=== PATIENT | female | born 1975 | race Caucasian/White ===

== ENCOUNTER 2016-10-18 10:12 | Emergency (ER) | payer OTHER ==
[~2016-10-18] VITALS: Ht 177.8 cm; Wt 106.3 kg
[~2016-10-18 10:12] MED LIST: ALLERGY SHOTS; AMPH30TA2 PO
[2016-10-18 10:16] VITALS: TEMP 36.9; Ht 177.8 cm; Wt 106.3 kg
[2016-10-18] MEDS ORDERED: PENI-82 PO (10:44)
[2016-10-18] MEDS ORDERED: HYDR-5688 PO (10:44)
--- NOTE | 2016-10-18 10:45 | EMERGENCY ROOM VISIT NOTE ---
ED Visit Note First contact with patient: 10:20 CHIEF COMPLAINT: Toothache HISTORY OF PRESENT ILLNESS: This 41-year-old female patient presented to the emergency department ambulatory with a progressive toothache for past 1 week. The patient believes it is coming from left lower molar the patient states that she felt that she got a popcorn kernel stuck in her gumline. She states she has been digging at it was not able to move anything. She states that now she has pain, swelling and tenderness to the gum. The pain is now steady and severe and radiates to the face. The patient does not have plans to a dentist appointment set up the plans to contact them on Wednesday. They rate their pain a 7/10 and the ibuprofen and Tylenol they have been taking has not relieved the pain. Denies facial swelling or fever. The patient denies any discharge from the mouth. REVIEW OF SYSTEMS: A 6 system review of systems was completed with positives and pertinent negatives listed in the HPI. ALLERGIES: No known drug allergies MEDICATIONS: Adderall PMH: ADHD SOCIAL HISTORY: The patient is employed. She does not smoke PHYSICAL EXAM: Vitals are noted on the nurse's note and reviewed by myself. Vital signs stable. Temperature 36.9C orally. GENERAL: This is a 41-year-old female, in no acute distress, nondiaphoretic, well-developed well-nourished. Mouth: The right lower tooth normal in appearance but the gum is swollen and tender around it, without any discharge or signs of an abscess. The remainder of the pharynx and tonsils are without erythema, edema, or exudate. The airway is patent. There is very mild left jaw swelling, There is no cervical or submandibular lymphadenopathy. The patient appears uncomfortable and in pain. The patient has overall good dental hygiene. ED COURSE: The patient was seen and examined. Previous visits were reviewed. The patient does not have a fever. She does not have any significant facial swelling. She is nontoxic in appearance. She will be placed on Pen-Vee K and given a small prescription for Kellogg. She should follow-up with a dentist for definitive management. She should return with worsening symptoms. Problem List Medical Problems: (1) Unspecified Asthma, Uncomplicated Status: Chronic Surgical Problems: (1) [place] teeth extracted Status: Resolved Current/Historical Medications Scheduled Amphetamine-Dextroamphetamine 30MG (Adderall 30MG), 1 TAB PO DAILY Penicillin V Potassium (Veetids), 500 MG PO QID Scheduled PRN Hydrocodone/Acetaminophen 5MG/325MG (Kellogg 5MG/325MG), 1 TABLET PO Q6 PRN for Pain Miscellaneous Medications [Allergy Shots] Allergies Coded Allergies: Animal Dander (Verified Allergy, Severe, ALSO ALLERGY TO PLANTS, 12/08/07) Dust (Verified Allergy, Severe, 12/08/07) Vital Signs Date Time Temp Pulse Resp B/P Pulse Ox O2 Delivery O2 Flow Rate FiO2 10/18/16 10:56 84 16 138/85 98 10/18/16 10:16 36.9 85 18 154/96 97 Room Air Departure Information Impression Primary Impression: Tooth pain with chewing Dispostion Home / Self-Care Condition GOOD Prescriptions Hydrocodone/Acetaminophen 5MG/325MG (Kellogg 5MG/325MG) Tab 1 TABLET PO Q6 Y for Pain, #12 TAB For Initial Treatment Prov: Lisa Katz PA-C 10/18/16 Penicillin V Potassium (Veetids) 500 Mg Tab 500 MG PO QID, #40 TAB Prov: Lisa Katz PA-C 10/18/16 Referrals Pro,John De Los Santos M.D. (PCP) Patient Instructions My [facility] Additional Instructions Pen-Vee K 4 times daily for 10 days.Kellogg one tablet every 6 hours if needed for worse pain. Do not drink or drive while taking Kellogg and do not take with Tylenol. Followup with a dentist for definitive management of your tooth. Return with high fevers, worsening pain or swelling.
[2016-10-18 10:56] VITALS: BP 138/85; PULSE 84; O2SAT 98
[2017-03-12] MEDS ORDERED: VNTHFA/IN INH (10:00)
== END 2016-10-18 10:58 | disposition home or self-care (01) ==
LOC: C.EDB 10:13
DX: K08.89 Other specified disorders of teeth and supporting structures (principal); F90.9 Attention-deficit hyperactivity disorder, unspecified type; J45.909 Unspecified asthma, uncomplicated; Z79.899 Other long term (current) drug therapy

== ENCOUNTER 2016-12-18 11:04 | Emergency (ER) | payer OTHER ==
[~2016-12-18] VITALS: Ht 177.8 cm; Wt 98.5 kg
[~2016-12-18 11:04] MED LIST changes: +HYDR-5688 PO; +PENI-82 PO
[2016-12-18 11:06] VITALS: Ht 177.8 cm; Wt 98.5 kg
[2016-12-18] MEDS ORDERED: MULT-506 PO (11:30)
--- NOTE | 2016-12-18 11:46 | DIAGNOSTIC IMAGING REPORT ---
RIGHT FOOT MIN 3 VIEWS ROUTINE CLINICAL HISTORY: Right foot pain following injury. COMPARISON: None FINDINGS: Tarsometatarsal joints are intact. There is extensive plantar and moderate posterior calcaneal spurring. No acute fracture is identified. IMPRESSION: No acute fracture or dislocation within the right foot. Electronically signed by: Noé Riggs M.D. 12/18/2016 11:45 AM Dictated Date/Time: 12/18/2016 11:43 AM
--- NOTE | 2016-12-18 12:30 | EMERGENCY ROOM VISIT NOTE ---
History First contact with patient: 11:26 Chief Complaint: FOOT PAIN Stated Complaint: RIGHT FOOT PAIN History of Present Illness The patient is a 41 year old female who presents to the Emergency Room with complaints of persistent right foot pain after dropping a dresser on her foot 3 days ago. The patient reports persistent swelling and pain with any attempted extension of her great toe. She denies any pain extending into the bottom of the foot, heel or ankle. Weightbearing worsens her pain to an 8 out of 10. 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 She denies any paresthesias or numbness of the foot or toes. Review of Systems 10 system review was performed and was negative except for pertinent positives and negatives as indicated in history of present illness Past Medical/Surgical History Medical Problems: (1) Unspecified Asthma, Uncomplicated Surgical Problems: (1) [place] teeth extracted Family History Unremarkable Social History Smoking Status: Former Smoker Alcohol Use: occasionally Marital Status: Housing Status: lives with family Occupation Status: employed Current/Historical Medications Scheduled Amphetamine-Dextroamphetamine 30MG (Adderall 30MG), 1 TAB PO DAILY Multivitamin (Multivitamin), 1 TAB PO DAILY Physical Exam Vital Signs Date Time Temp Pulse Resp B/P (MAP) Pulse Ox O2 Delivery O2 Flow Rate FiO2 12/18/16 11:06 36.4 82 16 128/86 98 Room Air Physical Exam CONSTITUTIONAL: Healthy and well nourished. Alert and oriented X 3 with positive affect. HEENT: Normocephalic, atraumatic. Pupils equal, round and reactive. MUSCULOSKELETAL: Examination of the right foot shows mild dorsolateral edema. No abrasions, lacerations or ecchymosis. She has tenderness to palpation across the entire dorsal foot, but no tenderness to palpation through the plantar foot or metatarsal region. The patient is able to extend the toes on exam. No discomfort with subtalar motion. Pedal pulses are intact. Capillary refill is less than 2 seconds. INTEGUMENTARY: No rash or other significant dermatologic conditions noted. NEUROLOGIC: Right foot and toes are sensory intact. Medical Decision & Procedures ER Provider Diagnostic Interpretation: My interpretation of right foot x-rays does not show any fractures or dislocations. Radiologist report is as follows: RIGHT FOOT MIN 3 VIEWS ROUTINE CLINICAL HISTORY: Right foot pain following injury. COMPARISON: None FINDINGS: Tarsometatarsal joints are intact. There is extensive plantar and moderate posterior calcaneal spurring. No acute fracture is identified. IMPRESSION: No acute fracture or dislocation within the right foot. ED Course Patient history and physical exam were performed. Nurse's notes were reviewed. The patient refused any analgesics while in the emergency department. X-rays of the right foot were normal. I did suggest dispensing crutches, however the patient refused. I explained to the patient that her symptoms may be exacerbated by persistent weightbearing, and encouraged limiting weight on the foot as much as possible. She may alternate ibuprofen and Tylenol as needed for pain. She was encouraged to follow-up with [facility] if symptoms persist. The patient voiced understanding of all discharge instructions, and rated her pain a 4 out of 10 at the conclusion of my exam. Medical Decision Medication Reconcilliation Current Medication List: was personally reviewed by me Blood Pressure Screening Patient's blood pressure: Normal blood pressure Impression Primary Impression: Contusion of right foot Departure Information Referrals Pro,John De Los Santos M.D. (PCP) Patient Instructions My [facility] Problem Qualifiers Primary Impression: Contusion of right foot Encounter type: initial encounter Qualified Codes: S90.31XA - Contusion of right foot, initial encounter
[2016-12-18 12:36] VITALS: BP 126/88; PULSE 80; TEMP 36.4; O2SAT 98
== END 2016-12-18 12:37 | disposition home or self-care (01) ==
LOC: C.EDB 11:06 → C.EDD 12:37
DX: S90.31XA Contusion of right foot, initial encounter (principal); W20.8XXA Other cause of strike by thrown, projected or falling object, initial encounter; J45.909 Unspecified asthma, uncomplicated; Z87.891 Personal history of nicotine dependence

== ENCOUNTER → 2017-03-08 | Outpatient (CLI) | payer OTHER ==
[~2017-03-08] MED LIST changes: -ALLERGY SHOTS; -HYDR-5688 PO; +MULT-506 PO; -PENI-82 PO
[2017-03-08 10:42] LABS: HEMATOCRIT 39.2 % (37-47); MEAN CELL VOLUME 85.6 fL (80-100); MEAN CORPUSCULAR HEMOGLOBIN 27.5 pg (25-34); MEAN CORPUSCULAR HGB CONC 32.1 g/dl (32-36); MEAN PLATELET VOLUME 11.8 fL (7.4-10.4); PLATELET COUNT 260 K/uL (130-400); RED BLOOD COUNT 4.58 M/uL (4.2-5.4); WHITE BLOOD COUNT 6.49 K/uL (4.8-10.8)
[2017-03-08 11:36] LABS: ESTIMATED AVERAGE GLUCOSE 117 mg/dl; HA1C FLAG Normal (Normal)
[2017-03-08 11:45] LABS: BLOOD UREA NITROGEN 12 mg/dl (7-18); BUN/CREATININE RATIO 14.4 (10-20); CALCIUM 8.9 mg/dl (8.5-10.1); CARBON DIOXIDE 25 mmol/L (21-32); CHLORIDE 105 mmol/L (98-107); CREATININE 0.83 mg/dl (0.60-1.20); GLUCOSE 107 mg/dl (70-99); POTASSIUM 4.1 mmol/L (3.5-5.1); SODIUM 139 mmol/L (136-145)
[2017-03-08 12:03] LABS: CHOLESTEROL 115 mg/dl (0-200); CHOLESTEROL/HDL RATIO 2.2; HDL CHOLESTEROL 52 mg/dl; LDL CHOLESTEROL CALCULATED 54 mg/dl; THYROID STIMULATING HORMONE 0.998 uIu/ml (0.300-4.500); TRIGLYCERIDES 43 mg/dl (0-150); VERY LOW DENSITY LIPOPROT CALC 9 mg/dl
[2017-03-09 11:58] LABS: BEEF CLASS 0/1; BEEF IGE 0.14 KU/L; CHOCOLATE CLASS 0; CHOCOLATE IGE <0.10 KU/L; CLAM CLASS 0/1; CLAM IGE 0.25 KU/L; CORN CLASS 0/1; CORN IGE 0.21 KU/L; CRAB CLASS 0/1; EGG MIX CLASS 0/1; EGG MIX IGE 0.23 KU/L; LOBSTER CLASS 0/1; LOBSTER IGE 0.12 KU/L; PEANUT IGE 0.24 KU/L; PORK CLASS 0; PORK IGE <0.10 KU/L; SHRIMP CLASS 3; SOY CLASS 0/1; SOY IGE 0.33 KU/L; WHEAT CLASS 0/1
== END | disposition home or self-care (01) ==
LOC: C.LAB1850 09:15
PROVIDERS: ATTEND Internal Medicine
DX: O24.419 Gestational diabetes mellitus in pregnancy, unspecified control (principal); Z3A.00 Weeks of gestation of pregnancy not specified; F90.9 Attention-deficit hyperactivity disorder, unspecified type; Z13.220 Encounter for screening for lipoid disorders; E07.9 Disorder of thyroid, unspecified; R22.0 Localized swelling, mass and lump, head; J45.909 Unspecified asthma, uncomplicated

== ENCOUNTER → 2017-03-22 | Day surgery (SDC) | payer OTHER ==
[2017-03-12 09:59] VITALS: BMI 31.0
[~2017-03-22] VITALS: Ht 177.8 cm; Wt 100.0 kg
[~2017-03-22] MED LIST changes: +ATROPINE SULFATE 0.1 MG/ML 5ML SYR IV PRN; +EpHEDrine SULFATE INJ 50 MG/ML AMP IV PRN; -MULT-506 PO; +PROPOFOL IV EMULSION 10 MG/ML 20 ML VIAL IV ONE; +VNTHFA/IN INH
[2017-03-22 09:01] VITALS: Ht 177.8 cm; Wt 100.0 kg
--- NOTE | 2017-03-22 09:25 | Endo History and Physical ---
History & Physical Date of Service: Mar 22, 2017. Chief Complaint: rectal bleed Referring Physician: Dr. Bonilla History of Present Illness 41 yo CF who presents for colonoscopy secondary to rectal bleeding. Past Surgical History Hx Cardiac Surgery: No Hx Internal Defibrillator: No Hx Pacemaker: No Hx Abdominal Surgery: No Hx of Implantable Prosthesis: No Hx Post-Op Nausea and Vomiting: No Hx Cancer Surgery: No Hx Thoracic Surgery: No Hx Orthopedic: No Hx Urinary Tract Surgery: No Family History Colon CA Social History Smoking Status: Former Smoker Hx Substance Use: No Hx Alcohol Use: Yes (OCCASIONALLY) Allergies Coded Allergies: Animal Dander (Verified Allergy, Severe, ALSO ALLERGY TO PLANTS, 03/22/17) Dust (Verified Allergy, Severe, BREATHING ISSUES, 03/22/17) Codeine (Verified Allergy, Unknown, GI-THROWS UP, 03/22/17) Current Medications Reported Home Medications Medications Dose Route/Sig Max Daily Dose Days Date Category Ventolin Hfa (Albuterol) 200 Puffs/02285 Mcg Aers 2-4 Puffs INH Q6H PRN 03/12/17 Reported Adderall 30MG (Amphetamine-Dextroamphetamine 30MG) 1 Tab Tab 1 Tab PO QAM 30 04/08/16 Reported Vital Signs Weight (Kilograms): 100.00 Height (Feet): 5 Height (Inches): 10 Date Time Temp Pulse Resp B/P (MAP) Pulse Ox O2 Delivery O2 Flow Rate FiO2 03/22/17 09:06 37.3 79 18 125/89 (101) 98 Room Air Physical Exam General Appearance: WD/WN, no apparent distress Respiratory/Chest: Auscultation: breath sounds normal Cardiovascular: Heart Auscultation: RRR Abdomen: Bowel Sounds: normal Inspection & Palpation: soft, non-distended, no tenderness, guarding & rebound Assessment and Plan Assessment: 41 yo CF who presents for colonoscopy secondary to rectal bleeding. Plan: Proceed with colonoscopy.
--- NOTE | 2017-03-22 09:50 | Anesthesiology Progress Note ---
Anesthesia Post Op Note Date & Time Mar 22, 2017 at 09:50 Vital Signs Vital Signs Past 12 Hours Date Time Temp Pulse Resp B/P (MAP) Pulse Ox O2 Delivery O2 Flow Rate FiO2 03/22/17 09:06 37.3 79 18 125/89 (101) 98 Room Air Notes Mental Status: alert / awake / arousable, participated in evaluation Pt Amnestic to Procedure: Yes Nausea / Vomiting: adequately controlled Pain: adequately controlled Airway Patency, RR, SpO2: stable & adequate BP & HR: stable & adequate Hydration State: stable & adequate Anesthetic Complications: no major complications apparent
--- NOTE | 2017-03-22 09:53 | Discharge Instructions ---
Endoscopy Patient Instructions Date / Procedure(s) Performed Mar 22, 2017. Colonoscopy Allergy Information Coded Allergies: Animal Dander (Verified Allergy, Severe, ALSO ALLERGY TO PLANTS, 03/22/17) Dust (Verified Allergy, Severe, BREATHING ISSUES, 03/22/17) Codeine (Verified Allergy, Unknown, GI-THROWS UP, 03/22/17) Discharge Date / Findings Mar 22, 2017. Diverticulosis Internal hemorrhoids Medication Instructions OK to resume all medications today as prescribed Reported Home Medications Medications Dose Route/Sig Max Daily Dose Days Date Category Ventolin Hfa (Albuterol) 200 Puffs/07360 Mcg Aers 2-4 Puffs INH Q6H PRN 03/12/17 Reported Adderall 30MG (Amphetamine-Dextroamphetamine 30MG) 1 Tab Tab 1 Tab PO QAM 30 04/08/16 Reported Provider Instructions Activity Restrictions - No exercising or heavy lifting for 24 hours. - Do not drink alcohol the day of the procedure. - Do not drive a car or operate machinery until the day after the procedure. - Do not make any important decisions or sign important papers in 24 hours after the procedure. Following Day: - Return to full activity which may include returning to work/school. Diet Start your diet with liquids and light foods (jello, soup, juice, toast). Then eat your usual diet if not nauseated. Treatment For Common After Affects For mild abdominal pain, bloating, or excessive gas: - Rest - Eat lightly - Lie on right side Follow-Up Information Follow-up with dr. acevedo as scheduled Anesthesia Information What You Should Know You have had a procedure that required some medicine to reduce anxiety and discomfort. This treatment is called moderate sedation. After receiving the treatment, you may be sleepy, but you will be able to breathe on your own. The effects of the treatment may last for several hours. Follow these instructions along with Activity/Diet recommendations noted above: * Do NOT do anything where dizziness or clumsiness would be dangerous. * Rest quietly at home today, then you can be up and about tomorrow. * Have a responsible person stay with you the rest of today. * You may have had an I.V. today. If so, you may take the dressing off later today. Recommendations Call your doctor if: * Trouble breathing * Continuous vomiting for more than 24 hours * Temperature above 101 degrees * Severe abdominal pain or bloating * Pain not relieved by pain medicine ordered * There is increased drainage or redness from any incision * A large amount of rectal bleeding greater than 2-3 tablespoons. (If you had a polyp/s removed or have hemorrhoids, a small amount of blood - from the rectum is to be expected.) * You have any unanswered questions or concerns. IN THE EVENT OF A SERIOUS EMERGENCY, GO TO THE NEAREST EMERGENCY ROOM Your discharge instructions were prepared by provider Dale Thurman. Patient Instructions Signature Page Zayda Prince Patient (or Guardian) Signature/Date: I have read and understand the instructions given to me by my caregivers. Caregiver/RN/Doctor Signature/Date: The above-named patient and/or guardian has received patient instructions on this date. + Original Patient Signature Page (only) stays with chart. Please make copy for patient.
[2017-03-22 10:18] VITALS: BP 124/91; PULSE 73; O2SAT 100
--- NOTE | 2017-03-22 10:30 | GI REPORT ---
Procedure Date: 03/22/2017 9:25 AM Procedure: Colonoscopy Indications: Rectal bleeding Medicines: Monitored Anesthesia Care Complications: No immediate complications. Estimated Blood Loss: Estimated blood loss: none. Procedure: Pre-Anesthesia Assessment: - Prior to the procedure, a History and Physical was performed, and patient medications and allergies were reviewed. The patient's tolerance of previous anesthesia was also reviewed. The risks and benefits of the procedure and the sedation options and risks were discussed with the patient. All questions were answered, and informed consent was obtained. Prior Anticoagulants: The patient has taken no previous anticoagulant or antiplatelet agents. ASA Grade Assessment: II - A patient with mild systemic disease. After reviewing the risks and benefits, the patient was deemed in satisfactory condition to undergo the procedure. After I obtained informed consent, the scope was passed under direct vision. Throughout the procedure, the patient's blood pressure, pulse, and oxygen saturations were monitored continuously. The scope was introduced through the anus and advanced to the terminal ileum. The colonoscopy was performed without difficulty. The patient tolerated the procedure well. The quality of the bowel preparation was good. The terminal ileum, ileocecal valve, appendiceal orifice, and rectum were photographed. Findings: Multiple small-mouthed diverticula were found in the sigmoid colon. Non-bleeding internal hemorrhoids were found during retroflexion. The hemorrhoids were small. Impression: - Diverticulosis in the sigmoid colon. - Non-bleeding internal hemorrhoids. - No specimens collected. Recommendation: - Resume previous diet. - Continue present medications. - Repeat colonoscopy in 5 years for surveillance. - Return to primary care physician as previously scheduled. Dale Thurman, 03/22/2017 9:59:19 AM This report has been signed electronically. Note Initiated On: 03/22/2017 9:25 AM I attest to the content of the Intraoperative Record and orders documented therein, exceptions below
== END | disposition home or self-care (01) ==
LOC: C.GI 08:37
PROVIDERS: ATTEND Internal Medicine
DX: K57.91 Diverticulosis of intestine, part unspecified, without perforation or abscess with bleeding (principal); K62.5 Hemorrhage of anus and rectum; K64.8 Other hemorrhoids; Z80.0 Family history of malignant neoplasm of digestive organs; Z87.891 Personal history of nicotine dependence